=== PATIENT | female | born 1955 | race Caucasian/White ===

== ENCOUNTER → 2018-08-30 | Outpatient (CLI) | payer OTHER ==
--- NOTE | 2018-09-01 20:50 | MR ---
Left ankle MRI HISTORY: Pain Multiplanar multisequence imaging through the left ankle No comparisons Arthropathy changes present at the intertarsal joints, tarsometatarsal joints with joint space narrow ing, there is subchondral edema present at the tarsometatarsal joint of the first digit and second di git as well as intertarsal joints. Subcutaneous edema changes are present. There is an ankle joint ef fusion. Plantar aponeurosis is intact. Achilles tendon is intact. Fluid signal present along the neisha nahomy longus and brevis tendons, flexor tendons. There is a 2 cm segment at the inframalleolar peronea l longus tendon of signal loss which may be due to tendinosis or partial tear. Tibiotalar joint is in tact. Ganglion cyst arising from the sinus Tarsi measures approximately 1.9 x 0.9 cm. Anterior talof ibular ligament is not seen and is likely torn. Posterior talofibular ligament shows probable grade 1 sprain. The calcaneofibular ligament shows a possible grade 2 sprain. IMPRESSION: Effusions, tenosynovitis, possible tear involving the peroneal longus tendon insertion an d possibly prior to the cuboid tunnel. Ganglion cyst. Anterior tibiofibular ligament tear and calcane ofibular and posterior tibiofibular ligament strains as described. Osteoarthritis. No evident fractur e.
== END | disposition home or self-care (01) ==
LOC: RADMRIMAIN 07:04
PROVIDERS: ATTEND Internal Medicine
DX: S93.412A Sprain of calcaneofibular ligament of left ankle, initial encounter (principal); S93.432A Sprain of tibiofibular ligament of left ankle, initial encounter; M19.072 Primary osteoarthritis, left ankle and foot; M65.872 Other synovitis and tenosynovitis, left ankle and foot; M67.472 Ganglion, left ankle and foot

== ENCOUNTER → 2019-02-11 | Outpatient (CLI) | payer OTHER ==
--- NOTE | 2019-02-12 07:35 | US ---
EXAMINATION TYPE: US abdomen complete DATE OF EXAM: 02/11/2019 COMPARISON: NONE CLINICAL HISTORY: R10.9 ABD PAIN,R10.2 PELVIC PAIN. Pelvic and back pain x 1 day, bloating EXAM MEASUREMENTS: Liver Length: 15.7 cm Gallbladder Wall: 0.2 cm CBD: 0.4 cm Spleen: 8.5 cm Right Kidney: 9.5 x 4.4 x 4.8 cm Left Kidney: 9.2 x 6.1 x 5.5 cm Pancreas: appears hyperechoic Liver: 2.4 x 1.3 x 2.4cm complex hypoechoic liver lesion with punctate hyperdensity, possible graphic design intern al calcification. Gallbladder: wnl Evidence for sonographic Darden's sign: no CBD: wnl Spleen: visualized portions wnl, limited by overlying bowel gas Right Kidney: fullness of renal pelvis Left Kidney: wnl Upper IVC: wnl Abd Aorta: wnl Liver lesion as described above otherwise the liver is homogeneous. The intrahepatic portion of the I VC and proximal abdominal aorta are within normal limits. There is no evidence of cholelithiasis. C ommon bile duct is unremarkable. The visualized portions of the pancreas are homogenous. The spleen is unremarkable. Kidneys are symmetric and free of hydronephrosis. No renal lesions are seen. IMPRESSION: Incidental 2.4 cm complex liver lesion with possible internal calcification. CT is recommended for f urther evaluation. This could represent focal nodular hyperplasia or adenoma if there is central scar . However other etiologies are possible.
--- NOTE | 2019-02-12 07:48 | US ---
EXAMINATION TYPE: US pelvis complete transvag DATE OF EXAM: 02/11/2019 COMPARISON: NONE CLINICAL HISTORY: R10.2 PELVIC AND PERINEAL PAIN. Pelvic and back pain x 1 day, 2, para 2, hi story of ligation TECHNIQUE: Transabdominal sonographic images of the pelvis were acquired. Transvaginal sonographic i mages were medically necessary to better assess the following anatomy: endometrium and ovaries Date of LMP: 15 years ago EXAM MEASUREMENTS: Uterus: 6.2 x 2.5 x 4.5 cm Endometrial Stripe: 0.2 cm Right Ovary: not seen Left Ovary: not seen 1. Uterus: anteverted, heterogeneous 2. Endometrium: fluid within endo 3. Right Ovary: not seen due to overlying bowel 4. Left Ovary: not seen due to overlying bowel 5. Bilateral Adnexa: wnl 6. Posterior cul-de-sac: free fluid IMPRESSION: 1. Endometrial fluid could relate to endometrial atrophy as the endometrium measures only 2 mm. Exclu de any postmenopausal bleeding that would warrant further evaluation. 2. Ovaries are nonvisualized due to overlying bowel gas.
== END | disposition home or self-care (01) ==
LOC: RADUSWWP 14:05
PROVIDERS: ATTEND Internal Medicine
DX: R10.2 Pelvic and perineal pain (principal)
CPT/HCPCS: 76700; 76830; 76856

== ENCOUNTER → 2019-02-16 | Outpatient (CLI) | payer OTHER ==
--- NOTE | 2019-02-16 14:10 | CT ---
EXAMINATION TYPE: CT abdomen pelvis wo/w con DATE OF EXAM: 02/16/2019 COMPARISON: Ultrasound 01/22/2019 HISTORY: Pelvic pain and diarrhea. Abnormal US. CT DLP: 993.1 mGycm Automated exposure control for dose reduction was used. CONTRAST: CT scan of the abdomen pelvis is performed without and with IV Contrast, patient injected with 100 mL of Isovue M300. FINDINGS- LUNG BASES- No significant abnormality is appreciated. LIVER/GB-within the right lobe of the liver near the caudate lobe there is a 2 cm hypodense lesion wi th circumscribed margins measuring 27 Hounsfield units. There is no calcification. No gallstones.. PANCREAS-question a 1 cm hypodensity within the head of the pancreas. SPLEEN- No gross abnormality is seen. ADRENALS- No gross abnormality is seen. KIDNEYS/BLADDER- no hydronephrosis nephrolithiasis or renal mass. BOWEL-bowel gas pattern nonspecific. No obstruction. Diverticulosis of the colon noted.. LYMPH NODES- No greater than 1cm abdominal or pelvic lymph nodes areappreciated. OSSEOUS STRUCTURES-hypertrophic and degenerative changes of the spine. Multilevel facet arthropathy.. OTHER- aorta of normal caliber. No free fluid. IMPRESSION- 1. Indeterminate hepatic lesion for which MRI is suggested. No calcification is seen. There does appe ar to be mild enhancement with noncontrast measuring 3 Hounsfield units and postcontrast measuring 27 Hounsfield units. Differential diagnosis includes benign hepatic lesions including hepatic adenoma o r FNH. Other etiologies not excluded. Additionally, there is a questionable 1 cm hypodensity within t he head of the pancreas. MRI suggested to exclude possibility of underlying malignancy.
== END | disposition home or self-care (01) ==
LOC: RADCTMAIN 11:32
PROVIDERS: ATTEND Internal Medicine
DX: K76.89 Other specified diseases of liver (principal); R10.9 Unspecified abdominal pain
CPT/HCPCS: 74178; Q9967

== ENCOUNTER → 2019-03-06 | Outpatient (CLI) | payer OTHER ==
--- NOTE | 2019-03-06 19:26 | MR ---
MR abdomen with and without contrast HISTORY: Abnormal CT and ultrasound, unspecified abdominal pain Multiplanar multisequence and postcontrast images obtained through the abdomen following 7.5 cc Gadav ist IV. Correlation to CT scan abdomen and pelvis 02/16/2019, ultrasound 02/11/2019 Within the liver, the previously described lesion within the right lobe of the liver immediately veronika cent to the anterior margin of the spleen and posterior to the common bile duct shows a septated mult ilocular and increased signal appearance on coronal T2 data set image #13. T1-weighted images show lo w signal to this lesion. There is no evident enhancement following contrast administration. No additi onal liver lesions are identified. The gallbladder is normal. No retroperitoneal adenopathy. Aorta sh ows normal caliber. The previously described abnormality in body of the pancreas is not seen definitively on MRI. The adrenal glands, kidneys, spleen are normal. Suspect hemangiomas within the L1 vertebral body. The re is mild spinal curvature. IMPRESSION: Findings could possibly represent proteinaceous multilocular cyst within the liver. Nonag gressive appearance. Lesion within the pancreas described on prior CT may represent volume averaging and is not seen definitively on MRI. Follow-up could be performed to evaluate for any interval change s. Additional findings above.
== END | disposition home or self-care (01) ==
LOC: RADMRIMAIN 14:32
PROVIDERS: ATTEND Physician Assistant
DX: K86.9 Disease of pancreas, unspecified (principal)
CPT/HCPCS: 74183; A9585

== ENCOUNTER → 2020-01-13 | Outpatient (CLI) | payer OTHER ==
--- NOTE | 2020-01-13 15:12 | MR ---
EXAMINATION TYPE: MR abdomen wo/w con DATE OF EXAM: 01/13/2020 COMPARISON: 03/06/2019 HISTORY: Recheck for liver disease/lesion CONTRAST: Standard multiplanar, multisequence MRI departmental protocol utilizing 7 mL intravenous Gadavist vic olinium contrast. FINDINGS: Previously noted septated hepatic lesion medial aspect right hepatic lobe directly posterior to the c ommon bile duct is redemonstrated. Lesion appears to be smaller at this time and currently measures 2 .2 cm in maximal dimension versus prior measurement of 2.5 cm. No evidence for pathologic enhancement . No additional hepatic lesions are evident. No evidence for intraperitoneal biliary ductal dilatatio n. Gallbladder is free of wall thickening or cholelithiasis. Pancreas is homogeneous and free of distinct lesion. No evidence for splenomegaly. No adrenal lesions seen. Kidneys are symmetric and free of hydronephrosis or renal mass. Abdominal aorta is of normal c aliber. IMPRESSION: Cystic lesion with internal septations right hepatic lobe is slightly smaller in size. No additional lesions identified at this time.
== END | disposition home or self-care (01) ==
LOC: RADMRIMAIN 13:14
PROVIDERS: ATTEND Physician Assistant
DX: K76.9 Liver disease, unspecified (principal)
CPT/HCPCS: 74183; A9585

== ENCOUNTER 2021-10-05 17:57 | Emergency (ER) | payer MEDICARE, OTHER ==
[2021-10-05 18:04] VITALS: TEMP 98.3
[2021-10-05 18:59] LABS: Basophils % (A) 1 %; Eosinophils # (A) 0.1 k/uL (0-0.7); Eosinophils % (A) 3 %; HCT 36.7 % (34.0-46.0); HGB 12.5 gm/dL (11.4-16.0); Lymphocytes # (A) 1.6 k/uL (1.0-4.8); Lymphocytes % (A) 28 %; MCH 32.6 pg (25.0-35.0); MCHC 34.2 g/dL (31.0-37.0); MCV 95.4 fL (80.0-100.0); Monocytes # (A) 0.4 k/uL (0-1.0); Monocytes % (A) 6 %; Neutrophils # (A) 3.5 k/uL (1.3-7.7); Neutrophils % (A) 61 %; Platelet Count 233 k/uL (150-450); RBC 3.85 m/uL (3.80-5.40); RDW 12.6 % (11.5-15.5); WBC 5.7 k/uL (3.8-10.6)
[2021-10-05 19:08] LABS: ALT 24 U/L (4-34); AST 28 U/L (14-36); African American GFR (CKD) >90 (>60 ml/min/1.73 sqM); Albumin 4.4 g/dL (3.5-5.0); Alkaline Phosphatase 72 U/L (38-126); Amylase 82 U/L (30-110); Anion Gap 7 mmol/L; Blood Urea Nitrogen 14 mg/dL (7-17); Calcium 9.6 mg/dL (8.4-10.2); Carbon Dioxide 25 mmol/L (22-30); Chloride 105 mmol/L (98-107); Glucose 93 mg/dL (74-99); Lipase 145 U/L (23-300); Non-African American GFR(CKD) >90 (>60 ml/min/1.73 sqM); Potassium 3.8 mmol/L (3.5-5.1); Sodium 137 mmol/L (137-145); Total Bilirubin 0.6 mg/dL (0.2-1.3); Total Protein 6.9 g/dL (6.3-8.2)
[2021-10-05 19:18] LABS: INR 0.9 (<1.2); Partial Thromboplastin Time 25.4 sec (22.0-30.0); Prothrombin Time 10.2 sec (9.0-12.0)
--- NOTE | 2021-10-05 19:23 | ED ---
General Adult HPI - General Chief complaint: Abdominal Pain Stated complaint: Rectal Bleeding Time Seen by Provider: 10/05/21 18:06 Source: patient, RN notes reviewed, old records reviewed Mode of arrival: ambulatory Limitations: no limitations - History of Present Illness Initial comments: 66-year-old female presenting for evaluation of generalized abdominal cramping and bright red rectal bleeding. Patient states she had 2 episodes today of bright red rectal bleeding. This occurred after the passage of normal stool. She is not currently on any anticoagulation. No fevers. No vomiting. No current abdominal pain. Bleeding episode was approximately 7 hours prior to arrival. - Related Data Home Medications Medication Instructions Recorded Confirmed Ascorbic Acid [Vitamin C] 500 mg PO DAILY 10/05/21 10/05/21 Atorvastatin [Lipitor] 20 mg PO HS 10/05/21 10/05/21 Calcium/Magnesium/Zinc 1 tab PO BID 10/05/21 10/05/21 [Tkfxhdx-Mekqmqxsn-Zlrd Tablet] Cholecalciferol [Vitamin D3 (125 125 mcg PO DAILY 10/05/21 10/05/21 Mcg = 5000 Iu)] Famotidine 20 mg PO BID 10/05/21 10/05/21 Lactobacillus Acidophilus 1 cap PO DAILY 10/05/21 10/05/21 [Florajen Acidophilus] Liquid Aafyceiiljt-Hpmvgzdyjiv-Gfj 2 tbsp PO DAILY 10/05/21 10/05/21 Magnesium 500 mg PO HS 10/05/21 10/05/21 Montelukast Sodium [Singulair] 10 mg PO DAILY 10/05/21 10/05/21 Vitamin B Complex 1 cap PO DAILY 10/05/21 10/05/21 polyethylene glycoL 3350 [Miralax] 17 gm PO MOWEFR 10/05/21 10/05/21 Allergies Allergy/AdvReac Type Severity Reaction Status Date / Time codeine AdvReac Severe Migraine, Verified 10/05/21 19:33 Nausea and Vomiting morphine AdvReac Severe Migraine, Verified 10/05/21 19:33 Nausea & Vomiting. tramadol AdvReac Severe Migraine, Verified 10/05/21 19:33 Nausea & Vomiting nickel AdvReac Unknown Rash/Hives, Verified 10/05/21 19:33 Swelling "Most Narcotics" AdvReac Severe Migraine, Uncoded 10/05/21 19:33 Nausea and Vomiting Review of Systems ROS Statement: Those systems with pertinent positive or pertinent negative responses have been documented in the HPI. ROS Other: All systems not noted in ROS Statement are negative. Past Medical History Past Medical History: Cancer Additional Past Medical History / Comment(s): BASAL CELL CA, MIGRAINE HEADACHES, HX OF ANEMIA, CRAMPS IN LEGS AND FEET., RECENTLY BROKE TOES #4 & #5 ON RIGHT FOOT-STATES COMPOUND FX AND HAS STITCHES WITH DRESSING-DENIES ANY DRAINAGE OR SIGNS OF INFECTION., PT STATES SHE HAS A COUGH THAT JUST STARTED WITH POSSIBLE "COLD" STARTING. , LIPOMA ON HER BACK. History of Any Multi-Drug Resistant Organisms: MRSA Date of last positivie culture/infection: 04/18/2013 MDRO Source:: RT FOOT Past Surgical History: Orthopedic Surgery, Tubal Ligation Additional Past Surgical History / Comment(s): RT ROTATOR CUFF, TENDON SURGERY VITO THUMBS. Past Anesthesia/Blood Transfusion Reactions: Family History of Problems w/ Anesthesia, Motion Sickness, Postoperative Nausea & Vomiting (PONV) Additional Past Anesthesia/Blood Transfusion Reaction / Comment(s): BROTHER = PONV Past Psychological History: No Psychological Hx Reported Smoking Status: Never smoker Past Alcohol Use History: Occasional Past Drug Use History: None Reported - Past Family History Brother(s) Family Medical History: Cancer Additional Family Medical History / Comment(s): LIVER CA General Exam Limitations: no limitations General appearance: alert, in no apparent distress Head exam: Present: atraumatic, normocephalic Eye exam: Present: normal appearance, PERRL ENT exam: Present: normal exam Neck exam: Present: normal inspection. Absent: tenderness, meningismus Respiratory exam: Present: normal lung sounds bilaterally. Absent: respiratory distress, wheezes Cardiovascular Exam: Present: regular rate, normal rhythm GI/Abdominal exam: Present: soft. Absent: distended, tenderness, guarding, rebound Rectal exam: Present: normal inspection, normal rectal tone. Absent: black stool, bloody stool, hemorrhoids Extremities exam: Present: normal inspection, normal capillary refill. Absent: pedal edema Neurological exam: Present: alert, oriented X3, CN II-XII intact. Absent: motor sensory deficit Psychiatric exam: Present: normal affect, normal mood Skin exam: Present: warm, dry, intact. Absent: cyanosis, diaphoretic Course Vital Signs 10/05/21 10/05/21 18:02 20:08 Temperature 98.3 F Pulse Rate 82 69 Respiratory 20 18 Rate Blood Pressure 150/81 139/80 O2 Sat by Pulse 98 98 Oximetry - Reevaluation(s) Reevaluation #1: 10/05/21 21:29 Patient reevaluated, no further rectal bleeding. Medical Decision Making - Medical Decision Making 66-year-old female with abdominal cramping and 2 episodes of bright red abdominal bleeding. No further bleeding after these episodes. This occurred 7 hours prior to arrivalbeen no further bleeding while in the emergency department. Rectal exam is unremarkable. There is no abdominal tenderness. Vital signs are stable. Laboratory testings are within normal limits. I did give the patient the option of admission for observation and general surgery consultation versus home with outpatient follow-up and strict return parameters. She does have a relationship with gastroenterology Dr. Dumont and can schedule an appointment as an outpatient. She is given strict return parameters to return with worsening abdominal pain, lightheadedness, further rectal bleeding. CAT scan does show diverticulosis without any other acute findings. - Lab Data Result diagrams: 10/05/21 18:46 10/05/21 18:46 Lab Results 10/05/21 10/05/21 10/05/21 Range/Units 18:46 18:46 18:46 WBC 5.7 (3.8-10.6) k/uL RBC 3.85 (3.80-5.40) m/uL Hgb 12.5 (11.4-16.0) gm/dL Hct 36.7 (34.0-46.0) % MCV 95.4 (80.0-100.0) fL MCH 32.6 (25.0-35.0) pg MCHC 34.2 (31.0-37.0) g/dL RDW 12.6 (11.5-15.5) % Plt Count 233 (150-450) k/uL MPV 8.0 Neutrophils % 61 % Lymphocytes % 28 % Monocytes % 6 % Eosinophils % 3 % Basophils % 1 % Neutrophils # 3.5 (1.3-7.7) k/uL Lymphocytes # 1.6 (1.0-4.8) k/uL Monocytes # 0.4 (0-1.0) k/uL Eosinophils # 0.1 (0-0.7) k/uL Basophils # 0.0 (0-0.2) k/uL PT 10.2 (9.0-12.0) sec INR 0.9 (<1.2) APTT 25.4 (22.0-30.0) sec Sodium 137 (137-145) mmol/L Potassium 3.8 (3.5-5.1) mmol/L Chloride 105 (98-107) mmol/L Carbon Dioxide 25 (22-30) mmol/L Anion Gap 7 mmol/L BUN 14 (7-17) mg/dL Creatinine 0.63 (0.52-1.04) mg/dL Est GFR (CKD-EPI)AfAm >90 (>60 ml/min/1.73 sqM) Est GFR (CKD-EPI)NonAf >90 (>60 ml/min/1.73 sqM) Glucose 93 (74-99) mg/dL Plasma Lactic Acid Osman (0.7-2.0) mmol/L Calcium 9.6 (8.4-10.2) mg/dL Total Bilirubin 0.6 (0.2-1.3) mg/dL AST 28 (14-36) U/L ALT 24 (4-34) U/L Alkaline Phosphatase 72 (38-126) U/L Total Protein 6.9 (6.3-8.2) g/dL Albumin 4.4 (3.5-5.0) g/dL Amylase 82 (30-110) U/L Lipase 145 (23-300) U/L Urine Color Urine Appearance (Clear) Urine pH (5.0-8.0) Ur Specific [place] (1.001-1.035) Urine Protein (Negative) Urine Glucose (UA) (Negative) Urine Ketones (Negative) Urine Blood (Negative) Urine Nitrite (Negative) Urine Bilirubin (Negative) Urine Urobilinogen (<2.0) mg/dL Ur Leukocyte Esterase (Negative) Urine RBC (0-5) /hpf Urine WBC (0-5) /hpf Urine Bacteria (None) /hpf 10/05/21 10/05/21 Range/Units 18:46 20:08 WBC (3.8-10.6) k/uL RBC (3.80-5.40) m/uL Hgb (11.4-16.0) gm/dL Hct (34.0-46.0) % MCV (80.0-100.0) fL MCH (25.0-35.0) pg MCHC (31.0-37.0) g/dL RDW (11.5-15.5) % Plt Count (150-450) k/uL MPV Neutrophils % % Lymphocytes % % Monocytes % % Eosinophils % % Basophils % % Neutrophils # (1.3-7.7) k/uL Lymphocytes # (1.0-4.8) k/uL Monocytes # (0-1.0) k/uL Eosinophils # (0-0.7) k/uL Basophils # (0-0.2) k/uL PT (9.0-12.0) sec INR (<1.2) APTT (22.0-30.0) sec Sodium (137-145) mmol/L Potassium (3.5-5.1) mmol/L Chloride (98-107) mmol/L Carbon Dioxide (22-30) mmol/L Anion Gap mmol/L BUN (7-17) mg/dL Creatinine (0.52-1.04) mg/dL Est GFR (CKD-EPI)AfAm (>60 ml/min/1.73 sqM) Est GFR (CKD-EPI)NonAf (>60 ml/min/1.73 sqM) Glucose (74-99) mg/dL Plasma Lactic Acid Osman <0.5 L (0.7-2.0) mmol/L Calcium (8.4-10.2) mg/dL Total Bilirubin (0.2-1.3) mg/dL AST (14-36) U/L ALT (4-34) U/L Alkaline Phosphatase (38-126) U/L Total Protein (6.3-8.2) g/dL Albumin (3.5-5.0) g/dL Amylase (30-110) U/L Lipase (23-300) U/L Urine Color Light Yellow Urine Appearance Clear (Clear) Urine pH 6.0 (5.0-8.0) Ur Specific [place] 1.003 (1.001-1.035) Urine Protein Negative (Negative) Urine Glucose (UA) Negative (Negative) Urine Ketones Negative (Negative) Urine Blood Negative (Negative) Urine Nitrite Negative (Negative) Urine Bilirubin Negative (Negative) Urine Urobilinogen <2.0 (<2.0) mg/dL Ur Leukocyte Esterase Trace H (Negative) Urine RBC <1 (0-5) /hpf Urine WBC 1 (0-5) /hpf Urine Bacteria Rare H (None) /hpf Disposition Clinical Impression: Rectal bleeding, Diverticulosis Disposition: HOME SELF-CARE Condition: Good Instructions (If sedation given, give patient instructions): Rectal Bleeding (ED), Diverticulosis (ED) Additional Instructions: Please return with worsening abdominal pain, significant rectal bleeding. The development of lightheadedness or fatigue. Please follow up with your primary care physician and her fish hatchery specialist Dr. Rangel. Is patient prescribed a controlled substance at d/c from ED?: No Referrals: Jeff Calloway PAC [REFERRING] - 1-2 days Lisette Rangel MD [STAFF PHYSICIAN] - 1-2 days Time of Disposition: 21:28
[2021-10-05 20:10] VITALS: RESP 18
[2021-10-05 20:24] LABS: Appearance,Urine Clear (Clear); Bacteria,Urine Rare /hpf; Bilirubin,Urine Negative (Negative); Blood,Urine Negative (Negative); Color,Urine Light Yellow; Glucose,Urine (UA) Negative (Negative); Ketones,Urine Negative (Negative); Leukocyte Esterase,Urine Trace (Negative); Nitrite,Urine Negative (Negative); Protein,Urine Negative (Negative); RBC,Urine <1 /hpf (0-5); Specific Gravity,Urine 1.003 (1.001-1.035); Urobilinogen,Urine <2.0 mg/dL (<2.0); WBC,Urine 1 /hpf (0-5)
--- NOTE | 2021-10-05 21:12 | CT ---
EXAMINATION TYPE: CT angio abdomen pelvis CT DLP: 1590.1 mGycm, Automated exposure control for dose reduction was used. DATE OF EXAM: 10/05/2021 8:29 PM COMPARISON: CT abdomen pelvis 02/16/2019. CLINICAL INDICATION:Female, 66 years old with history of abdominal pain; GI bleed TECHNIQUE: Multiple thin slice sub-millimeter images were obtained through the abdomen, pelvis, and l ower extremities after administration of contrast. Patient was given Isovue 370, 100 cc intravenousl y. 3-D reconstructed images and maximum intensity projection images were obtained of the abdomen, pe lvis, and lower extremities. FINDINGS: CTA Abdomen and pelvis: The abdominal aorta does not demonstrate aneurysmal dilatation. Atherosclero tic plaquing is identified within the abdominal aorta. The origins of the superior mesenteric artery , renal arteries, inferior mesenteric artery, and celiac axis are patent. The iliac vessels are norm al in morphology. Atherosclerotic plaquing with some mural thrombus formation is identified in the c ommon iliac arteries. LIVER: Caudate lobe cyst noted. GALLBLADDER AND BILE DUCTS: Unremarkable. PANCREAS: Unremarkable. SPLEEN: Unremarkable. ADRENAL GLANDS: Unremarkable. KIDNEYS AND URETERS: No evidence of hydronephrosis or renal calculus. The ureters are unremarkable. PELVIS BLADDER: Unremarkable REPRODUCTIVE: Unremarkable. ABDOMEN & PELVIS STOMACH AND BOWEL: Scattered diverticula are noted throughout the colon. No evidence of bowel obstru ction. PERITONEUM: No evidence of pneumoperitoneum or free fluid. MUSCULOSKELETAL: Mild disc degeneration changes are present throughout the thoracolumbar spine. LYMPH NODES: No gross evidence for lymphadenopathy. SOFT TISSUE/ABDOMINAL WALL: Fat filled umbilical hernia measuring 1.0 cm at the neck. IMPRESSION 1. No evidence of gastrointestinal hemorrhage. 2. No evidence of hemodynamically significant stenosis. 3. Colonic diverticulosis.
[2021-10-05 21:50] VITALS: BP 135/78; PULSE 61
== END 2021-10-05 21:54 | disposition home or self-care (01) ==
LOC: EC 17:57
DX: K57.90 Diverticulosis of intestine, part unspecified, without perforation or abscess without bleeding (principal); K62.5 Hemorrhage of anus and rectum; Z88.5 Allergy status to narcotic agent; Z88.0 Allergy status to penicillin; Z91.048 Other nonmedicinal substance allergy status
CPT/HCPCS: 36415; 80053; 82150; 83605; 83690; 85025; 85610; 85730; 81001; 74174; 99284; Q9967

== ENCOUNTER 2021-11-28 06:53 | Day surgery (SDC) | payer MEDICARE ==
[2021-11-24 09:51] VITALS: BMI 22.8
[~2021-11-28 06:53] MED LIST: LACTATED RINGERS 1,000 ML IV SCH
[2021-11-28 07:18] VITALS: TEMP 98.3
[2021-11-28] MEDS ORDERED: LIDOCAINE 1% INJ 10MG/ML (20 ML MDV) ONE (07:47)
[2021-11-28] MEDS ORDERED: PROPOFOL 10 MG/ML 20 ML VIAL IV ONE (07:47)
--- NOTE | 2021-11-28 08:25 | P.PCN ---
Date of Procedure: 11/28/21 Procedure(s) Performed: Brief history: Patient is a pleasant 68-year-old white female scheduled for an elective upper endoscopy as well as colonoscopy as a part of evaluation of severe epigastric pain for the last 6 months duration. Also had rectal bleeding about a month ago for which she went to the emergency room and was discharged home. Last colonoscopy 3 years ago revealed sigmoid diverticulosis Procedure performed: Esophagogastroduodenoscopy with biopsy Colonoscopy Preoperative diagnosis: Severe epigastric pain Rectal bleeding Anesthesia: MAC Procedure: After informed consent was obtained from the patient was brought into the endoscopy unit and IV sedation was administered by anesthesia under continuous monitoring. Initially upper endoscopy was done. The Olympus GF 160 video endoscope was inserted inserted into the mouth and esophagus intubated without any difficulty and was gradually advanced into the stomach and duodenum and carefully examined. The bulb and second part of the duodenum appeared normal. The scope was then withdrawn into the stomach adequately insufflated with air and upon careful examination the antrum had mild gastritis and biopsies were done from this area. The body, cardia and fundus appeared normal. The scope was then withdrawn into the esophagus. The GE junction was located at 40 cm to the incisors. There was a small hiatal hernia noted. There were linear erosions in the distal esophagus consistent with LA grade B reflux esophagitis. It appeared regular with no erythema erosions or ulcerations. Rest of the esophagus appeared normal. Patient tolerated the procedure well. At this time the patient continued to remain sedation. Initial digital rectal examination was normal. Olympus CF 160 video colonoscope was then inserted into the rectum and gradually advanced to the cecum without any difficulty. Careful examination was performed as the scope was gradually being withdrawn. The prep was excellent. The cecum, ascending colon, transverse colon, descending colon, sigmoid colon and rectum appeared normal. Scattered sigmoid diverticulosis. Retroflexion was performed in the rectum and grade 2 internal hemorrhoidswere noted. Patient tolerated the procedure well. Impression: 1. Upper endoscopy revealed small hiatal hernia, LA grade B reflux esophagitis and mild antral gastritis 2. Colonoscopy revealed scattered sigmoid diverticulosis and grade 2 internal Recommendations: Findings of this examination were discussed with the patient as well as appendectomy. She was advised to follow with the biopsy results. She will be started on omeprazole 20 mg daily and use Pepcid as needed. Advised on a high- fiber diet and take fiber supplements a regular basis. Recommend repeat screening colonoscopy in 10 years.
[2021-11-28 08:29] VITALS: PULSE 67
[2021-11-28 08:51] VITALS: BP 124/84; RESP 16
== END 2021-11-28 09:16 | disposition home or self-care (01) ==
LOC: ORWHC2ENDO 06:53
PROVIDERS: ATTEND Internal Medicine Gastroenterology
DX: K57.30 Diverticulosis of large intestine without perforation or abscess without bleeding (principal); K29.50 Unspecified chronic gastritis without bleeding; K20.0 Eosinophilic esophagitis; K44.9 Diaphragmatic hernia without obstruction or gangrene; K22.10 Ulcer of esophagus without bleeding; F41.9 Anxiety disorder, unspecified; Z96.693 Finger-joint replacement, bilateral; Z98.890 Other specified postprocedural states; Z98.51 Tubal ligation status; Z79.899 Other long term (current) drug therapy; Z88.5 Allergy status to narcotic agent
CPT/HCPCS: 88305; 45378; 43239; J2001; J2704

== ENCOUNTER → 2024-12-29 | Outpatient (CLI) | payer MEDICARE ==
--- NOTE | 2024-12-29 09:16 | MR ---
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 FINDINGS: Scattered moderate effusions throughout the radiocarpal, ulnocarpal, and distal radioulnar joints as well as within the mid carpal compartment, and first CMC joint. Some associated patchy subchondral marrow edema scattered throughout these regions as well as the uln ar styloid process and a few subtle subcortical erosion suspected, especially throughout the mid carp al compartment. Superimposed severe degenerative change first CMC joint with subchondral cystic change, marginal spur ring, and cartilage loss. There is a through thickness tear involving the central disc of the TFC. Moderate tenosynovial fluid along the extensor carpi ulnaris. Otherwise, dorsal extensor and volar fl exor tendons of the wrist appears satisfactory. Normal caliber of the median nerve at the wrist. There is some inhomogeneous signal involving both dorsal and volar bands of the scapholunate ligament without elaina tear. Volar band of the lunotriquetral ligament is intact. No acute or healing fracture is seen. IMPRESSION: 1. Moderate joint effusions throughout the wrist, midcarpal compartment, and base of the thumb with s cattered patchy subchondral marrow edema and suggestion of small subcortical erosions especially with in the mid carpal compartment. Consider an inflammatory arthropathy such as rheumatoid arthritis or C PPD. Radiographic correlation may be helpful. 2. Moderate ECU tenosynovitis. 3. 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 4. Through thickness tear central disc of the TFC. [facility], , 12/29/2024 9:14 AM
== END | disposition home or self-care (01) ==
LOC: RADMRIMAIN 06:10
PROVIDERS: ATTEND Orthopaedic Surgery Hand Surgery
DX: M24.132 Other articular cartilage disorders, left wrist (principal); M65.932 Unspecified synovitis and tenosynovitis, left forearm; M25.432 Effusion, left wrist; M19.032 Primary osteoarthritis, left wrist